=== PATIENT | male | born 1980 | race Caucasian/White ===

== ENCOUNTER 2017-02-01 | Emergency (ER) | payer SELFPAY ==
[~2017-02-01] VITALS: Ht 182.9 cm; Wt 65.2 kg
[~2017-02-01] MED LIST: AUGMENTIN875TAB PO; BACTRIM DS1 TAB PO; BACTROBAN2 % EX; CLINDAMYCIN300 M1 PO; DOXYCYC MONO100 M1 PO; DOXYCYC MONO100 MG OR; LORTAB 10 PO; NO MEDS; ULTRAM50 MG OR
[2017-02-01] MEDS ORDERED: AUGMENTIN875TAB PO (00:42)
[2017-02-01 01:30] VITALS: BP 122/76
== END 2017-02-01 01:30 | disposition home or self-care (01) | DRG 605 ==
LOC: ED
DX: S51.852A Open bite of left forearm, initial encounter (principal); F17.210 Nicotine dependence, cigarettes, uncomplicated; Y04.1XXA Assault by human bite, initial encounter; Y92.009 Unspecified place in unspecified non-institutional (private) residence as the place of occurrence of the external cause

== ENCOUNTER 2020-03-03 21:20 | Emergency (ER) | payer SELFPAY ==
[~2020-03-03] VITALS: Ht 182.9 cm; Wt 90.9 kg
[2020-03-03] MEDS ORDERED: PERCOCET 5/325M1 TAB PO (23:10)
[2020-03-03] MEDS ORDERED: TRIPLE ANTI6 EX (23:10)
[2020-03-03 23:35] VITALS: BP 127/82
== END 2020-03-03 23:35 | disposition home or self-care (01) | DRG 935 ==
LOC: ED 21:20
PROC: 2W2JX4Z Dressing of Right Finger using Bandage (ICD-10-PCS; principal; 2020-03-03)
PROC: 2W2EX4Z Dressing of Right Hand using Bandage (ICD-10-PCS; 2020-03-03)
DX: T23.252A Burn of second degree of left palm, initial encounter (principal); T23.221A Burn of second degree of single right finger (nail) except thumb, initial encounter; F17.210 Nicotine dependence, cigarettes, uncomplicated; X15.3XXA Contact with hot saucepan or skillet, initial encounter; Y93.G3 Activity, cooking and baking; Y92.000 Kitchen of unspecified non-institutional (private) residence as the place of occurrence of the external cause

== ENCOUNTER 2021-02-26 19:28 | Emergency (ER) | payer SELFPAY ==
[~2021-02-26] VITALS: Ht 182.9 cm; Wt 90.0 kg
[~2021-02-26 19:28] MED LIST changes: +PERCOCET 5/325M1 TAB PO; +TRIPLE ANTI6 EX
[2021-02-26 21:35] VITALS: BP 123/68
== END 2021-02-26 21:36 | disposition home or self-care (01) | DRG 204 ==
LOC: ED 19:28
DX: R05 Cough (principal); F17.210 Nicotine dependence, cigarettes, uncomplicated; Z20.822 Contact with and (suspected) exposure to COVID-19

== ENCOUNTER 2021-04-27 08:28 | Emergency (ER) | payer SELFPAY ==
[~2021-04-27] VITALS: Ht 182.9 cm; Wt 86.0 kg
[2021-04-27 10:09] LABS: IMMATURE GRANULOCYTES 0.1 % (0.0-5.0); MEAN CORPUSCULAR HGB 30.9 pG CALC (26.0-32.0); MEAN CORPUSCULAR HGB CONC 32.8 g/dL CAL (32.0-36.0); RED BLOOD COUNT 4.86 mill/uL (4.70-6.10); RED CELL DISTRI WIDTH 13.8 % (11.5-15.5)
[2021-04-27 10:10] LABS: HEMATOCRIT 45.7 % (39.0-50.0)
[2021-04-27 10:20] LABS: ALBUMIN 4.2 g/dL (3.2-5.0); ALKALINE PHOSPHATASE 103 u/l (38-126); ANION GAP 10 (6-22 (CALC)); BILIRUBIN, TOTAL 0.7 mg/dL (0.0-1.4); BUN 8 mg/dL (9-20); BUN/CREATININE RATIO 8 (12-20 (CALC)); CARBON DIOXIDE 25 mmol/l (22-30); CHLORIDE 105 mmol/l (95-108); GFR > 60 ML/MIN (>=60 (CALC)); GFR FOR AFR.AMER. > 60 ML/MIN (>=60 (CALC)); POTASSIUM 4.4 mmol/l (3.5-5.1); SGOT/AST 30 u/l (17-59); SODIUM 135 mmol/l (137-146); TOTAL PROTEIN 7.5 g/dL (6.3-8.2)
[2021-04-27 14:00] VITALS: BP 123/78
== END 2021-04-27 14:33 | DRG 603 ==
LOC: ED 08:28
PROVIDERS: Emergency Medicine
DX: L08.9 Local infection of the skin and subcutaneous tissue, unspecified (principal); S61.210A Laceration without foreign body of right index finger without damage to nail, initial encounter; F17.210 Nicotine dependence, cigarettes, uncomplicated; W26.9XXA Contact with unspecified sharp object(s), initial encounter

== ENCOUNTER 2023-02-13 14:34 | Emergency (ER) | payer SELFPAY ==
[~2023-02-13] VITALS: Ht 182.9 cm; Wt 83.9 kg
[2023-02-13] VITALS (7 sets, daily range): BP systolic 114–141; BP diastolic 67–105
[2023-02-13] MEDS ORDERED: KEFLEX500 MG PO (16:07)
== END 2023-02-13 16:27 | disposition home or self-care (01) | DRG 605 ==
LOC: ED 14:34
PROC: 0HQ1XZZ Repair Face Skin, External Approach (ICD-10-PCS; principal; 2023-02-13)
DX: S01.81XA Laceration without foreign body of other part of head, initial encounter (principal); F17.200 Nicotine dependence, unspecified, uncomplicated; W29.8XXA Contact with other powered hand tools and household machinery, initial encounter

== ENCOUNTER 2023-02-19 16:16 | Emergency (ER) | payer SELFPAY ==
[~2023-02-19] VITALS: Ht 182.9 cm; Wt 83.9 kg
[~2023-02-19 16:16] MED LIST changes: +KEFLEX500 MG PO
[2023-02-19 16:32] VITALS: BP 118/83
[2023-02-19 16:45] VITALS: BP 116/78
[2023-02-19 17:00] VITALS: BP 121/73
[2023-02-19 17:06] VITALS: BP 121/73
== END 2023-02-19 17:07 | disposition home or self-care (01) | DRG 950 ==
LOC: ED 16:16
DX: S01.81XD Laceration without foreign body of other part of head, subsequent encounter (principal); X58.XXXD Exposure to other specified factors, subsequent encounter

== ENCOUNTER 2023-04-15 15:42 | Emergency (ER) | payer SELFPAY ==
[~2023-04-15] VITALS: Ht 182.9 cm; Wt 81.8 kg
[2023-04-15 15:53] VITALS: BP 120/79
[2023-04-15 16:00] VITALS: BP 121/74
[2023-04-15] MEDS ORDERED: OMNI-PAC300 MG PO (16:01)
[2023-04-15] MEDS ORDERED: BACTRIM DS1 TAB PO (16:01)
[2023-04-15 16:15] VITALS: BP 122/77
[2023-04-15 16:30] VITALS: BP 128/86
[2023-04-15 16:45] VITALS: BP 126/87
== END 2023-04-15 16:49 | disposition home or self-care (01) | DRG 603 ==
LOC: ED 15:42
PROC: 0H9DXZZ Drainage of Right Lower Arm Skin, External Approach (ICD-10-PCS; principal; 2023-04-15)
DX: L02.413 Cutaneous abscess of right upper limb (principal)

== ENCOUNTER 2024-09-25 10:43 | Emergency (ER) | payer SELFPAY ==
[~2024-09-25] VITALS: Ht 182.9 cm; Wt 95.2 kg
[2024-09-25] VITALS (9 sets, daily range): BP systolic 103–130; BP diastolic 57–83
[~2024-09-25 10:43] MED LIST changes: +OMNI-PAC300 MG PO
[2024-09-25] MEDS ORDERED: BACTRIM DS1 TAB PO (12:35)
[2024-09-27] MEDS ORDERED: DOXYCYCLINE HY100 MG PO (12:37)
== END 2024-09-25 12:30 | disposition home or self-care (01) | DRG 603 ==
LOC: ED 10:43
DX: L03.115 Cellulitis of right lower limb (principal); B95.62 Methicillin resistant Staphylococcus aureus infection as the cause of diseases classified elsewhere

== ENCOUNTER 2024-09-28 11:52 | Emergency (ER) | payer SELFPAY ==
[2024-09-28] VITALS (7 sets, daily range): BP systolic 110–128; BP diastolic 74–99
[~2024-09-28] VITALS: Ht 182.9 cm; Wt 79.3 kg
[~2024-09-28 11:52] MED LIST changes: +DOXYCYCLINE HY100 MG PO
[2024-09-28 12:31] LABS: BASO% 0.2 % (0-3); EOS% 0.5 % (0-8); HEMOGLOBIN 13.6 g/dl (14.0-18.0); IMMATURE GRANULOCYTES 0.1 % (0.0-5.0); LYMPH% 16.9 % (15-41); MEAN CELL VOLUME 94.3 fL CALC (80.0-100.0); MEAN CORPUSCULAR HGB 31.3 pG CALC (26.0-32.0); MEAN CORPUSCULAR HGB CONC 33.2 g/dL CAL (32.0-36.0); MONO% 7.3 % (2-13); NEUT# 8.23 thou/uL (1.82-7.42); RED BLOOD COUNT 4.35 mill/uL (4.70-6.10); RED CELL DISTRI WIDTH 12.5 % (11.5-15.5)
[2024-09-28] MEDS ORDERED: VANCOMYCIN HCL 1 GM in SODIUM CHLORIDE 0.9% 500 ML IV ONE (12:40)
[2024-09-28 12:49] LABS: ALBUMIN 4.3 g/dL (3.2-5.0); BILIRUBIN, TOTAL 0.9 mg/dL (0.2-1.3); CREATININE 1.4 mg/dL (0.7-1.3); POTASSIUM 3.7 mmol/l (3.5-5.1); TOTAL PROTEIN 7.7 g/dL (6.3-8.2)
[2024-09-28] MEDS ORDERED: SODIUM CHLORIDE 0.9% 1,000 ML IV ONE (13:25)
[2024-09-28] MEDS ORDERED: TRAMADOL HYDROC50 M1 PO (14:41)
== END 2024-09-28 15:00 | disposition home or self-care (01) | DRG 603 ==
LOC: ED 11:52
PROVIDERS: Family Medicine
DX: L03.115 Cellulitis of right lower limb (principal); B95.62 Methicillin resistant Staphylococcus aureus infection as the cause of diseases classified elsewhere; Z86.14 Personal history of Methicillin resistant Staphylococcus aureus infection
CPT/HCPCS: J3370

== ENCOUNTER 2024-10-02 16:16 | Emergency (ER) | payer SELFPAY ==
[~2024-10-02] VITALS: Ht 182.9 cm; Wt 97.5 kg
[~2024-10-02 16:16] MED LIST changes: +TRAMADOL HYDROC50 M1 PO
[2024-10-02 16:24] VITALS: BP 125/105
[2024-10-02] MEDS ORDERED: MUPIROCIN2 % EX (16:29)
[2024-10-02 16:30] VITALS: BP 125/84
[2024-10-02 16:45] VITALS: BP 117/72
[2024-10-02 16:46] VITALS: BP 117/72
== END 2024-10-02 16:55 | disposition home or self-care (01) | DRG 603 ==
LOC: ED 16:16
PROC: 0H9CXZZ Drainage of Left Upper Arm Skin, External Approach (ICD-10-PCS; principal; 2024-10-02)
DX: L01.02 Bockhart's impetigo (principal); F17.200 Nicotine dependence, unspecified, uncomplicated